=== PATIENT | female | born 1985 | race Caucasian/White ===

== ENCOUNTER 2019-09-13 12:15 | Emergency (ER) | payer MEDICARE, OTHER ==
[~2019-09-13] VITALS: Ht 165.1 cm; Wt 56.7 kg
--- NOTE | 2019-09-13 12:42 | NUR ---
PT AMBULATORY TO ER BED 14 C/O LOWER ABDOMINAL PAIN AND VAGINAL DISCHARGE SINCE WEDNESDAY. ALSO C/O WEAKNESS, GOWNED AND PLACED ON MONITOR. AWAITING MD BUSTAMATNE.
--- NOTE | 2019-09-13 13:03 | NUR ---
dr merchant at bedside for eval.
[2019-09-13] MEDS ORDERED: diphenhydrAMINE HCL 50 MG/ML VIAL ONE ×2 (13:15→15:15)
[2019-09-13] MEDS ORDERED: MORPHINE SULFATE INJ 4 MG/ML DISP.SYRIN ONE (13:15)
[2019-09-13] MEDS ORDERED: FAMOTIDINE/PF INJ 20 MG/2 ML VIAL IV ONE ×2 (13:18→13:30)
[2019-09-13 13:22] LABS: BASOPHILS % (AUTO) 0.1 % (0.0-2.0); EOSINOPHILS % (AUTO) 0.1 % (0.0-6.0); HEMATOCRIT 33 % (33-45); LYMPHOCYTES # (AUTO) 1.6 /CMM (0.8-4.8); MEAN CORPUSCULAR HGB CONC 33 g/dl (31.0-36.0); MEAN CORPUSCULAR VOLUME 88 fL (82-100); MONOCYTES # (AUTO) 0.6 /CMM (0.1-1.30); MONOCYTES % (AUTO) 6.9 % (2.0-12.0); NEUTROPHILS % (AUTO) 72.9 % (43.0-81.0); PLATELET COUNT (AUTO) 218 /CMM (150-450); RED BLOOD CELL COUNT(AUTO) 3.75 MIL/uL (4.0-5.2); WHITE BLOOD COUNT (AUTO) 8.2 K/uL (4.3-11.0)
[2019-09-13 13:24] LABS: APPEARANCE,URINE Clear (CLEAR); BILIRUBIN,URINE Negative (NEGATIVE); BLOOD, URINE Large Ery/uL (NEGATIVE); COLOR,URINE Yellow (YELLOW); KETONES,URINE Negative (NEGATIVE); LEUKOCYTE ESTERASE ,URINE Negative (NEGATIVE); NITRITE, URINE Negative (NEGATIVE); PH,URINE 5.5 (5.0-8.0); PROTEIN,URINE Negative (NEGATIVE); UGLUCOSE Negative (NEGATIVE); UROBILINOGEN,URINE 0.2 EU/dL (0.2)
[2019-09-13 13:27] LABS: RBC,URINE 21-50 /HPF (0-2)
[2019-09-13 13:28] LABS: BACTERIA,URINE Few /HPF (None Seen); SQUAMOUS EPITHELIAL CELL,UR Few /HPF (None Seen)
[2019-09-13 13:29] LABS: CALCIUM, SERUM 8.6 mg/dL (8.5-10.1); CREATININE 0.8 mg/dL (0.6-1.3); POTASSIUM 3.7 mmol/L (3.5-5.1)
[2019-09-13] MEDS ORDERED: diphenhydrAMINE HCL 50 MG/ML VIAL IV ONE (13:30)
[2019-09-13] MEDS ORDERED: IV NS 0.9% 1,000 ML BAG IV ONE (13:30)
[2019-09-13] MEDS ORDERED: MORPHINE SULFATE INJ 2 MG/ML DISP.SYRIN IV ONE (13:30)
--- NOTE | 2019-09-13 13:36 | NUR ---
u/s tech at bedside for pelvic ultrasound.
[2019-09-13 13:41] LABS: ALBUMIN 3.6 g/dL (3.4-5.0); BILIRUBIN,DIRECT 0.1 mg/dL (0.0-0.2); BILIRUBIN,TOTAL 0.2 mg/dL (0.2-1.0); TOTAL PROTEIN, SERUM 6.3 g/dL (6.4-8.2)
--- NOTE | 2019-09-13 13:50 | NUR ---
CHAPERONED DR VILLALOBOS AT BEDSIDE FOR PELVIC EXAM
[2019-09-13] MEDS ORDERED: HYDROMORPHONE 1 MG/1 ML DISP.SYRIN ONE (14:54)
[2019-09-13] MEDS ORDERED: HYDROMORPHONE 1 MG/1 ML DISP.SYRIN IV ONE (15:00)
[2019-09-13] MEDS ORDERED: CT SWABBABLE VALVE TRANS SET 1 EA INFUS.SET MC ONE (15:14)
[2019-09-13] MEDS ORDERED: IOHEXOL-300 100 ML VIAL IV ONE (15:14)
[2019-09-13] MEDS ORDERED: IV NS 0.9% 250 ML IV ONE (15:15)
--- NOTE | 2019-09-13 15:21 | NUR ---
pre medicated w/ benedryl 50 mg ivp. pt taken to radiology for abdominal ct via wheelchair.
--- NOTE | 2019-09-13 16:40 | NUR ---
IV removed. Catheter intact and site benign. Pressure and 4x4 applied to site. No bleeding noted.Patient discharged to home in stable condition. Written and verbal after care instructions given. Patient verbalizes understanding of instruction.
[2019-09-13 16:52] VITALS: BP 123/62
== END 2019-09-13 17:01 | disposition home or self-care (01) ==
LOC: ER 12:15
DX: R10.30 Lower abdominal pain, unspecified (principal); N93.8 Other specified abnormal uterine and vaginal bleeding; E27.8 Other specified disorders of adrenal gland; F68.10 Factitious disorder imposed on self, unspecified; G43.909 Migraine, unspecified, not intractable, without status migrainosus; K21.9 Gastro-esophageal reflux disease without esophagitis; Z98.890 Other specified postprocedural states; Z88.8 Allergy status to other drugs, medicaments and biological substances
CPT/HCPCS: 36415; 74177; 76856; 80048; 80076; 81001; 83690; 84702; 84703; 85025; 96374; 96375; 99285; J1170; J1200 ×2; J2270; J3490; J7030; J7050; Q9967; 81000-TC; C1751

== ENCOUNTER 2019-10-21 19:53 | Emergency (ER) | payer MEDICARE, OTHER ==
[~2019-10-21] VITALS: Ht 165.1 cm; Wt 54.4 kg
[2019-10-21 19:53] VITALS: BP 110/80
[2019-10-21] MEDS ORDERED: IV NS 0.9% 1,000 ML BAG IV ONE (20:30)
[2019-10-21] MEDS ORDERED: ONDANSETRON HCL/PF 4 MG/2 ML VIAL IVP ONE (20:30)
[2019-10-21] MEDS ORDERED: KETOROLAC TROMETHAMINE INJ 30 MG/ML VIAL IV ONE (20:30)
[2019-10-21 20:41] LABS: APPEARANCE,URINE Clear (CLEAR); BILIRUBIN,URINE Negative (NEGATIVE); BLOOD, URINE Trace-lysed Ery/uL (NEGATIVE); COLOR,URINE Yellow (YELLOW); KETONES,URINE Negative (NEGATIVE); LEUKOCYTE ESTERASE ,URINE Negative (NEGATIVE); NITRITE, URINE Negative (NEGATIVE); PH,URINE 8.5 (5.0-8.0); PROTEIN,URINE Negative (NEGATIVE); UGLUCOSE Negative (NEGATIVE); UROBILINOGEN,URINE 0.2 EU/dL (0.2)
[2019-10-21 20:49] LABS: BACTERIA,URINE Many /HPF (None Seen); SQUAMOUS EPITHELIAL CELL,UR Many /HPF (None Seen); WBC,URINE 0-2 /HPF (0-3)
--- NOTE | 2019-10-21 21:01 | NUR ---
PT ELOPED. PT REFUSED MEDS ORDERED BY DARREN MOSES. PT STS " I'LL JUST GO TO ANOTHER HOSPITAL ". PT WALKED OUT OF ED, DR. FERNANDEZ & DARREN MOSES SPOKE TO PT & STILL LEFT ED.
== END 2019-10-21 21:09 | disposition home or self-care (01) ==
LOC: ER 19:57
DX: G89.29 Other chronic pain (principal); G43.909 Migraine, unspecified, not intractable, without status migrainosus; R10.84 Generalized abdominal pain; F68.10 Factitious disorder imposed on self, unspecified; K21.9 Gastro-esophageal reflux disease without esophagitis; R00.0 Tachycardia, unspecified; Z88.8 Allergy status to other drugs, medicaments and biological substances; Z90.89 Acquired absence of other organs
CPT/HCPCS: 81000-TC; 87086-TC